=== PATIENT | female | born 1955 | race Caucasian/White ===

== ENCOUNTER 2019-09-14 21:00 | Observation (INO) ==
[2019-09-14 21:44] LABS: VBG HCO3 30 mEq/L (21-27); VBG PCO2 43 mmHg (41-51); VBG PH 7.45 pH Units (7.32-7.42); VBG PO2 73 mmHg (25-50)
[2019-09-14 22:02] LABS: Basophils # 0.1 K/mcL (0.0-0.2); Basophils % 1.2 %; Eosinophils # 0.1 K/mcL (0.0-0.6); Eosinophils % 1.4 %; Hematocrit 48.5 % (35.3-44.9); Hemoglobin 14.8 g/dL (11.5-15.4); Lymphocytes # 1.4 K/mcL (0.6-4.6); Lymphocytes % 27.1 %; Mean Corpuscular HGB Conc 30.5 g/dL (31.6-35.5); Mean Corpuscular Volume 85.2 fL (83.0-100.0); Monocytes # 0.4 K/mcL (0.0-1.3); Monocytes % 7.2 %; Neutrophils # 3.1 K/mcL (1.6-8.9); Platelet Count 185 K/mcL (140-400); Red Blood Count 5.69 M/mcL (3.82-4.97); Red Cell Distribution Width 29.9 % (11.5-14.5); Segmented Neutrophils % 63.1 %
[2019-09-14] MEDS: 0.9 % Sodium Chloride 1,000 ML IVC SCH ×2 (22:03→23:02)
[2019-09-14 22:13] LABS: Bilirubin,Urine Negative (Negative); Blood,Urine Trace-lysed (Negative); Clarity,Urine Clear (Clear); Color,Urine Yellow (Yellow); Glucose,Urine (UA) >=1000 mg/dL (Normal); Ketones,Urine Negative (Negative); Leukocyte Esterase,Urine Negative (Negative); Nitrite,Urine Negative (Negative); Protein,Urine >=300 mg/dL (Neg-Trace); Urobilinogen,Urine Normal (Normal)
[2019-09-14 22:17] LABS: Troponin I < 0.03 ng/mL (< 0.04)
[2019-09-14 22:23] LABS: BUN/Creatinine Ratio 18 (6-26); Blood Urea Nitrogen 17 mg/dL (8-23); Calcium 8.5 mg/dL (8.6-10.3); Carbon Dioxide 31 mEq/L (23-29); Chloride 88 mEq/L (98-107); Glucose 631 mg/dL (70-105); Osmolality,Calculated 299 (280-300); Potassium 3.5 mEq/L (3.5-5.1); Sodium 129 mEq/L (136-145); eGFR For African Americans > 60 (> 60); eGFR For Non-African Americans 59 (> 60)
[2019-09-14] MEDS ORDERED: Insulin Regular, Human 100 UNIT/ML SQ ONE (23:25)
[2019-09-15] MEDS ORDERED: *HR* Dextrose 50 % in Water (Vial) 50 ML VIAL IVP PRN (00:22)
[2019-09-15] MEDS ORDERED: Naloxone 0.4 MG/ML INJ IVP PRN (00:22)
[2019-09-15] MEDS ORDERED: D5% in Water 1,000 ML IVC PRN (00:22)
[2019-09-15] MEDS ORDERED: Dextrose Gel 15 GM/37.5 ML TUBE PO PRN ×2 (00:22)
[2019-09-15] MEDS: 0.9 % Sodium Chloride 1,000 ML IVC SCH ×2 (01:23→03:19)
[2019-09-15] MEDS: Insulin LISPRO 300 UNITS/3 ML VIAL SQ SCH ×5 (01:24→17:21)
[2019-09-15 07:30] LABS: Potassium 2.6 mEq/L (3.5-5.1)
[2019-09-15] MEDS ORDERED: Ondansetron 4 MG/2 ML VIAL IVP PRN (07:33)
[2019-09-15] MEDS ORDERED: Acetaminophen 325 MG TABLET PO PRN (07:34)
[2019-09-15 07:45] LABS: BUN/Creatinine Ratio 18 (6-26); Blood Urea Nitrogen 15 mg/dL (8-23); Calcium 8.2 mg/dL (8.6-10.3); Carbon Dioxide 36 mEq/L (23-29); Chloride 95 mEq/L (98-107); Glucose 63 mg/dL (70-105); Osmolality,Calculated 289 (280-300); Sodium 140 mEq/L (136-145); eGFR For African Americans > 60 (> 60); eGFR For Non-African Americans > 60 (> 60)
[2019-09-15] MEDS: Aspirin Enteric Coated 81 MG Tablet PO SCH (08:15)
[2019-09-15] MEDS: Spironolactone 25 MG TABLET PO SCH (08:15)
[2019-09-15] MEDS: Sacubitril/Valsartan 49/51 MG 1 TABLET PO SCH ×2 (08:15→20:23)
[2019-09-15] MEDS: rOPINIRole 0.25 MG TABLET PO SCH (08:15)
[2019-09-15] MEDS ORDERED: NON-FORMULARY MEDICATION 1 EACH EACH (Lisinopril [Lisinopril] 2.5 MG) PO SCH (09:00)
[2019-09-15] MEDS ORDERED: 0.9 % Sodium Chloride 1,000 ML IVC SCH (09:00)
[2019-09-15] MEDS: Nicotine 14 MG PATCH.TD24 TD SCH (12:33)
[2019-09-15 13:18] LABS: Estimated Average Glucose 315 mg/dl
[2019-09-15 18:42] LABS: BUN/Creatinine Ratio 19 (6-26); Blood Urea Nitrogen 18 mg/dL (8-23); Calcium 8.1 mg/dL (8.6-10.3); Carbon Dioxide 32 mEq/L (23-29); Chloride 96 mEq/L (98-107); Glucose 162 mg/dL (70-105); Osmolality,Calculated 283 (280-300); Sodium 134 mEq/L (136-145); eGFR For African Americans > 60 (> 60); eGFR For Non-African Americans 60 (> 60)
[2019-09-15] MEDS ORDERED: Insulin LISPRO 300 UNITS/3 ML VIAL SQ SCH (21:00)
[2019-09-16 07:27] LABS: Basophils # 0.1 K/mcL (0.0-0.2); Eosinophils % 0.5 %; Hematocrit 51.8 % (35.3-44.9); Hemoglobin 15.4 g/dL (11.5-15.4); Immature Granulocytes % 0.2 % (0-4); Lymphocytes # 1.9 K/mcL (0.6-4.6); Lymphocytes % 33.2 %; Mean Corpuscular HGB Conc 29.7 g/dL (31.6-35.5); Mean Corpuscular Hemoglobin 26.3 pg (28.0-33.3); Mean Corpuscular Volume 88.5 fL (83.0-100.0); Monocytes # 0.5 K/mcL (0.0-1.3); Monocytes % 7.7 %; Neutrophils # 3.4 K/mcL (1.6-8.9); Platelet Count 163 K/mcL (140-400); Red Blood Count 5.85 M/mcL (3.82-4.97); Red Cell Distribution Width 30.2 % (11.5-14.5); Segmented Neutrophils % 57.4 %; White Blood Count 5.9 K/mcL (4.3-11.1)
[2019-09-16] MEDS ORDERED: *HR* Metformin 500 MG TABLET PO SCH (08:00)
[2019-09-16] MEDS ORDERED: GlipiZIDE 5 MG TABLET PO SCH (08:00)
[2019-09-16] MEDS: Insulin LISPRO 300 UNITS/3 ML VIAL SQ SCH ×2 (08:03→12:29)
[2019-09-16 08:06] LABS: BUN/Creatinine Ratio 22 (6-26); Blood Urea Nitrogen 21 mg/dL (8-23); Calcium 8.3 mg/dL (8.6-10.3); Carbon Dioxide 29 mEq/L (23-29); Chloride 98 mEq/L (98-107); Glucose 125 mg/dL (70-105); Osmolality,Calculated 280 (280-300); Potassium 5.1 mEq/L (3.5-5.1); Sodium 133 mEq/L (136-145); eGFR For African Americans > 60 (> 60); eGFR For Non-African Americans 59 (> 60)
[2019-09-16] MEDS: rOPINIRole 0.25 MG TABLET PO SCH (08:07)
[2019-09-16] MEDS: Aspirin Enteric Coated 81 MG Tablet PO SCH (08:08)
[2019-09-16] MEDS: Spironolactone 25 MG TABLET PO SCH (08:08)
[2019-09-16] MEDS: Sacubitril/Valsartan 49/51 MG 1 TABLET PO SCH (08:09)
[2019-09-16] MEDS: Nicotine 14 MG PATCH.TD24 TD SCH (08:09)
[2019-09-16 10:41] VITALS: BP 114/78
== END 2019-09-16 13:00 | disposition home or self-care (01) ==
LOC: INPPIK 21:00 → EMEROOPIK 21:00 → INPPIK 09-15 00:14
PROVIDERS: ADMIT Family Medicine; ATTEND Family Medicine